=== PATIENT | female | born 1980 | race Caucasian/White ===

== ENCOUNTER 2016-04-08 20:05 | Emergency (ER) | payer MEDICAID ==
[2015-04-24 20:34] VITALS: BMI 31.2
[~2016-04-08 20:05] MED LIST: PERCOCET 10/3251 TA1 PO
== END 2016-04-08 22:53 | disposition home or self-care (01) ==
LOC: D.ER 20:05
DX: G43.909 Migraine, unspecified, not intractable, without status migrainosus (principal)

== ENCOUNTER 2016-04-22 21:29 | Emergency (ER) | payer MEDICAID ==
[2015-04-24 20:34] VITALS: BMI 31.2
== END 2016-04-22 23:28 | disposition home or self-care (01) ==
LOC: D.ER 21:29
DX: M62.838 Other muscle spasm (principal); M50.20 Other cervical disc displacement, unspecified cervical region

== ENCOUNTER 2016-05-05 18:05 | Emergency (ER) | payer MEDICAID ==
[2015-04-24 20:34] VITALS: BMI 31.2
== END 2016-05-05 23:41 | disposition left against medical advice (07) ==
LOC: D.ER 18:05
DX: R20.0 Anesthesia of skin (principal)

== ENCOUNTER 2016-05-06 15:57 | Emergency (ER) | payer MEDICAID ==
[2015-04-24 20:34] VITALS: BMI 31.2
== END 2016-05-06 18:35 | disposition home or self-care (01) ==
LOC: D.ER 15:57
DX: M54.12 Radiculopathy, cervical region (principal); F17.200 Nicotine dependence, unspecified, uncomplicated

== ENCOUNTER 2016-05-30 02:23 | Emergency (ER) | payer MEDICAID ==
[2015-04-24 20:34] VITALS: BMI 31.2
== END 2016-05-30 02:51 | disposition home or self-care (01) ==
LOC: D.ER 02:23
DX: G43.909 Migraine, unspecified, not intractable, without status migrainosus (principal); M50.20 Other cervical disc displacement, unspecified cervical region; F17.200 Nicotine dependence, unspecified, uncomplicated

== ENCOUNTER 2016-07-17 15:05 | Emergency (ER) | payer MEDICAID ==
[2015-04-24 20:34] VITALS: BMI 31.2
== END 2016-07-17 18:15 | disposition home or self-care (01) ==
LOC: D.ER 15:05
DX: L03.113 Cellulitis of right upper limb (principal); L02.413 Cutaneous abscess of right upper limb; M79.601 Pain in right arm

== ENCOUNTER 2016-07-21 16:51 | Emergency (ER) | payer MEDICAID ==
[2015-04-24 20:34] VITALS: BMI 31.2
== END 2016-07-21 21:34 | disposition home or self-care (01) ==
LOC: D.ER 16:51
DX: G43.909 Migraine, unspecified, not intractable, without status migrainosus (principal); R51 Headache; E86.0 Dehydration; M77.9 Enthesopathy, unspecified; N93.8 Other specified abnormal uterine and vaginal bleeding

== ENCOUNTER 2016-08-06 17:37 | Emergency (ER) | payer MEDICAID ==
[2015-04-24 20:34] VITALS: BMI 31.2
== END 2016-08-06 21:00 | disposition home or self-care (01) ==
LOC: D.ER 17:37
DX: M54.5 Low back pain (principal); F17.200 Nicotine dependence, unspecified, uncomplicated

== ENCOUNTER 2016-09-16 01:56 | Emergency (ER) | payer MEDICAID ==
[2015-04-24 20:34] VITALS: BMI 31.2
== END 2016-09-16 02:42 | disposition home or self-care (01) ==
LOC: D.ER 01:56
DX: K02.9 Dental caries, unspecified (principal); K08.89 Other specified disorders of teeth and supporting structures; K05.10 Chronic gingivitis, plaque induced

== ENCOUNTER 2016-09-20 01:23 | Emergency (ER) | payer MEDICAID ==
[2015-04-24 20:34] VITALS: BMI 31.2
== END 2016-09-20 02:00 | disposition home or self-care (01) ==
LOC: D.ER 01:23
DX: D69.0 Allergic purpura (principal); F17.200 Nicotine dependence, unspecified, uncomplicated

== ENCOUNTER 2016-10-27 01:40 | Emergency (ER) | payer MEDICAID ==
[2015-04-24 20:34] VITALS: BMI 31.2
== END 2016-10-27 02:42 | disposition home or self-care (01) ==
LOC: D.ER 01:40
DX: S61.250A Open bite of right index finger without damage to nail, initial encounter (principal); W54.0XXA Bitten by dog, initial encounter; Y93.89 Activity, other specified; Y92.9 Unspecified place or not applicable; Y99.9 Unspecified external cause status; F17.200 Nicotine dependence, unspecified, uncomplicated

== ENCOUNTER 2016-11-05 22:56 | Emergency (ER) | payer MEDICAID ==
[2015-04-24 20:34] VITALS: BMI 31.2
== END 2016-11-06 00:52 | disposition home or self-care (01) ==
LOC: D.ER 22:56
DX: R51 Headache (principal); I10 Essential (primary) hypertension; K21.9 Gastro-esophageal reflux disease without esophagitis; F17.200 Nicotine dependence, unspecified, uncomplicated

== ENCOUNTER 2016-11-14 23:48 | Emergency (ER) | payer MEDICAID ==
[2015-04-24 20:34] VITALS: BMI 31.2
== END 2016-11-15 00:26 | disposition home or self-care (01) ==
LOC: D.ER 23:48
DX: S41.111D Laceration without foreign body of right upper arm, subsequent encounter (principal); X58.XXXD Exposure to other specified factors, subsequent encounter; Y92.89 Other specified places as the place of occurrence of the external cause; Z48.02 Encounter for removal of sutures; Z85.828 Personal history of other malignant neoplasm of skin

== ENCOUNTER 2016-11-29 01:37 | Emergency (ER) | payer MEDICAID ==
[2015-04-24 20:34] VITALS: BMI 31.2
== END 2016-11-29 02:42 | disposition home or self-care (01) ==
LOC: D.ER 01:37
DX: T78.40XA Allergy, unspecified, initial encounter (principal); X58.XXXA Exposure to other specified factors, initial encounter; F17.200 Nicotine dependence, unspecified, uncomplicated

== ENCOUNTER 2016-12-21 01:47 | Emergency (ER) | payer MEDICAID ==
[2015-04-24 20:34] VITALS: BMI 31.2
== END 2016-12-21 03:40 | disposition home or self-care (01) ==
LOC: D.ER 01:47
DX: G43.909 Migraine, unspecified, not intractable, without status migrainosus (principal); I10 Essential (primary) hypertension

== ENCOUNTER 2017-01-03 01:17 | Emergency (ER) | payer MEDICAID ==
[2015-04-24 20:34] VITALS: BMI 31.2
== END 2017-01-03 02:12 | disposition home or self-care (01) ==
LOC: D.ER 01:17
DX: M50.30 Other cervical disc degeneration, unspecified cervical region (principal); M54.2 Cervicalgia; I10 Essential (primary) hypertension; F17.200 Nicotine dependence, unspecified, uncomplicated

== ENCOUNTER 2017-03-01 02:13 | Emergency (ER) | payer MEDICAID ==
[2015-04-24 20:34] VITALS: BMI 31.2
[2017-03-01 03:00] LABS: BASOPHILS 0.2 % (0-2); EOSINOPHILS 1.8 % (0-7); HEMATOCRIT 40.9 % (36.0-48.0); IMMATURE GRANULOCYTES 0.2 % (0-5); LYMPHOCYTES 30.4 % (15-50); MCH 31.8 pg (26.0-34.0); MCHC 34.2 g/dL (31.0-37.0); MEAN PLATELET VOLUME 10.2 fL (7.4-10.4); MONOCYTES 5.6 % (2-11); NEUTROPHILS 61.8 % (40-80); PLATELET COUNT 338 10x3/uL (130-400); RDW 13.6 % (11.5-14.5); WBC 12.9 10x3/uL (4.8-10.8)
[2017-03-01 03:15] LABS: ALBUMIN 3.4 g/dL (3.4-5.0); ALKALINE PHOSPHATASE 60 U/L (46-116); ALT (SGPT) 23 U/L (10-68); CALC OSMOLALITY 272 mosm/kg (275-300); CALCIUM 8.9 mg/dL (8.5-10.1); CARBON DIOXIDE 27.1 mmol/L (21.0-32.0); CHLORIDE - SERUM 104 mmol/L (98-107); CREATININE - SERUM 0.7 mg/dL (0.6-1.3); GLUCOSE 97 mg/dL (74-106); POTASSIUM - SERUM 3.8 mmol/L (3.5-5.1); PROTEIN - SERUM 6.9 g/dL (6.4-8.2); SODIUM 138 mmol/L (136-145); UREA NITROGEN 5 mg/dL (7-18); eGFR NON AFRICAN AMERICAN > 90 mL/min (90-120)
[2017-03-01 03:22] LABS: BILIRUBIN - TOTAL 0.09 mg/dL (0.2-1.3)
[2017-03-01 03:26] LABS: CREATINE KINASE 90 UL (21-215)
[2017-03-01 03:34] LABS: TROPONIN-I < 0.017 ng/mL (0.000-0.060)
== END 2017-03-01 03:54 | disposition home or self-care (01) ==
LOC: D.ER 02:13
PROVIDERS: Emergency Medicine
DX: R07.89 Other chest pain (principal); I10 Essential (primary) hypertension; Z85.828 Personal history of other malignant neoplasm of skin; F17.200 Nicotine dependence, unspecified, uncomplicated

== ENCOUNTER 2017-03-05 16:02 | Emergency (ER) | payer MEDICAID ==
[2015-04-24 20:34] VITALS: BMI 31.2
== END 2017-03-05 17:45 | disposition home or self-care (01) ==
LOC: D.ER 16:02
DX: J01.90 Acute sinusitis, unspecified (principal); F17.200 Nicotine dependence, unspecified, uncomplicated

== ENCOUNTER 2017-03-17 02:15 | Emergency (ER) | payer MEDICAID ==
[2015-04-24 20:34] VITALS: BMI 31.2
== END 2017-03-17 02:50 | disposition home or self-care (01) ==
LOC: D.ER 02:15
DX: T25.021A Burn of unspecified degree of right foot, initial encounter (principal); X11.8XXA Contact with other hot tap-water, initial encounter; Y93.89 Activity, other specified; Y92.019 Unspecified place in single-family (private) house as the place of occurrence of the external cause; F17.200 Nicotine dependence, unspecified, uncomplicated

== ENCOUNTER 2017-03-27 21:03 | Emergency (ER) | payer MEDICAID ==
[2015-04-24 20:34] VITALS: BMI 31.2
== END 2017-03-27 22:50 | disposition home or self-care (01) ==
LOC: D.ER 21:03
DX: J01.90 Acute sinusitis, unspecified (principal); J06.9 Acute upper respiratory infection, unspecified; I10 Essential (primary) hypertension; Z85.828 Personal history of other malignant neoplasm of skin; F17.200 Nicotine dependence, unspecified, uncomplicated

== ENCOUNTER 2017-04-02 17:51 | Emergency (ER) | payer MEDICAID ==
[2015-04-24 20:34] VITALS: BMI 31.2
== END 2017-04-02 21:01 | disposition home or self-care (01) ==
LOC: D.ER 17:51
DX: J20.9 Acute bronchitis, unspecified (principal)

== ENCOUNTER 2017-04-12 23:01 | Emergency (ER) | payer MEDICAID ==
[2015-04-24 20:34] VITALS: BMI 31.2
== END 2017-04-12 23:51 | disposition home or self-care (01) ==
LOC: D.ER 23:01
DX: G89.18 Other acute postprocedural pain (principal)

== ENCOUNTER 2017-05-15 01:16 | Emergency (ER) | payer MEDICAID ==
[2015-04-24 20:34] VITALS: BMI 31.2
== END 2017-05-15 02:10 | disposition home or self-care (01) ==
LOC: D.ER 01:16
DX: R10.9 Unspecified abdominal pain (principal); R11.10 Vomiting, unspecified; F17.200 Nicotine dependence, unspecified, uncomplicated

== ENCOUNTER → 2017-05-21 13:15 | Outpatient (CLI) | payer MEDICAID ==
[2015-04-24 20:34] VITALS: BMI 31.2
== END | disposition home or self-care (01) ==
LOC: D.CT 13:15
DX: R31.9 Hematuria, unspecified (principal); R10.30 Lower abdominal pain, unspecified

== ENCOUNTER 2017-05-22 00:14 | Emergency (ER) | payer MEDICAID ==
[2015-04-24 20:34] VITALS: BMI 31.2
[2017-05-22 01:17] LABS: BASOPHILS 0.1 % (0-2); EOSINOPHILS 0.7 % (0-7); HEMATOCRIT 43.9 % (36.0-48.0); HEMOGLOBIN 14.9 g/dL (12-16); IMMATURE GRANULOCYTES 0.2 % (0-5); MCH 31.5 pg (26.0-34.0); MCHC 33.9 g/dL (31.0-37.0); MCV 92.8 fL (80.0-100.0); MONOCYTES 4.2 % (2-11); NEUTROPHILS 75.8 % (40-80); PLATELET COUNT 340 10x3/uL (130-400); RBC 4.73 10x6/uL (4.00-5.40); RDW 13.5 % (11.5-14.5); WBC 13.9 10x3/uL (4.8-10.8)
[2017-05-22 01:29] LABS: ALBUMIN 3.6 g/dL (3.4-5.0); ALKALINE PHOSPHATASE 62 U/L (46-116); ALT (SGPT) 27 U/L (10-68); CALC OSMOLALITY 275 mosm/kg (275-300); CALCIUM 9.2 mg/dL (8.5-10.1); CARBON DIOXIDE 30.7 mmol/L (21.0-32.0); CHLORIDE - SERUM 103 mmol/L (98-107); CREATININE - SERUM 0.8 mg/dL (0.6-1.3); GLUCOSE 118 mg/dL (74-106); POTASSIUM - SERUM 3.5 mmol/L (3.5-5.1); PROTEIN - SERUM 7.5 g/dL (6.4-8.2); SODIUM 139 mmol/L (136-145); UREA NITROGEN 4 mg/dL (7-18); eGFR NON AFRICAN AMERICAN 86 mL/min (90-120)
[2017-05-22 01:31] LABS: APPEARANCE HAZY (CLEAR); BILIRUBIN NEGATIVE (NEGATIVE); COLOR YELLOW (YELLOW); EPITHELIAL CELLS 0-5 /hpf (0-5); GLUCOSE NEGATIVE (NEGATIVE); KETONE NEGATIVE (NEGATIVE); NITRITE NEGATIVE (NEGATIVE); PROTEIN 1+ mg/dL (NEGATIVE); UROBILINOGEN NORMAL (NORMAL); WHITE CELLS - URINE 0-5 /hpf (0-5)
== END 2017-05-22 02:00 | disposition home or self-care (01) ==
LOC: D.ER 00:14
PROVIDERS: Emergency Medicine
DX: K43.9 Ventral hernia without obstruction or gangrene (principal); F17.200 Nicotine dependence, unspecified, uncomplicated

== ENCOUNTER 2017-06-27 03:29 | Emergency (ER) | payer MEDICAID ==
[2015-04-24 20:34] VITALS: BMI 31.2
[2017-06-27 04:42] LABS: BASOPHILS 0.2 % (0-2); EOSINOPHILS 1.5 % (0-7); HEMATOCRIT 42.4 % (36.0-48.0); HEMOGLOBIN 14.4 g/dL (12-16); IMMATURE GRANULOCYTES 0.3 % (0-5); MCH 31.2 pg (26.0-34.0); MEAN PLATELET VOLUME 10.1 fL (7.4-10.4); MONOCYTES 6.7 % (2-11); NEUTROPHILS 63.3 % (40-80); PLATELET COUNT 343 10x3/uL (130-400); RBC 4.61 10x6/uL (4.00-5.40); RDW 13.3 % (11.5-14.5); WBC 15.4 10x3/uL (4.8-10.8)
[2017-06-27 04:53] LABS: CALC OSMOLALITY 274 mosm/kg (275-300); CALCIUM 8.7 mg/dL (8.5-10.1); CARBON DIOXIDE 24.7 mmol/L (21.0-32.0); CHLORIDE - SERUM 105 mmol/L (98-107); CREATININE - SERUM 0.8 mg/dL (0.6-1.3); GLUCOSE 80 mg/dL (74-106); POTASSIUM - SERUM 3.3 mmol/L (3.5-5.1); SODIUM 140 mmol/L (136-145); UREA NITROGEN 5 mg/dL (7-18); eGFR NON AFRICAN AMERICAN 86 mL/min (90-120)
[2017-06-27 05:50] LABS: APPEARANCE CLEAR (CLEAR); BILIRUBIN NEGATIVE (NEGATIVE); COLOR YELLOW (YELLOW); GLUCOSE NEGATIVE (NEGATIVE); KETONE NEGATIVE (NEGATIVE); NITRITE NEGATIVE (NEGATIVE); PROTEIN NEGATIVE (NEGATIVE); SPECIFIC GRAVITY 1.015 (1.005-1.020); UROBILINOGEN NORMAL (NORMAL)
[2017-07-26] MEDS ORDERED: PROPRANOLOL HCL20 MG PO (11:06)
[2017-07-26] MEDS ORDERED: ROBAXIN500 MG PO (11:07)
[2017-07-26] MEDS ORDERED: ELAVIL75 MG PO (11:08)
[2017-07-26] MEDS ORDERED: BUSPAR 15 MG TA15 MG PO (11:08)
[2017-07-26] MEDS ORDERED: IMITREX100 MG PO (11:09)
[2017-07-26] MEDS ORDERED: COMPAZINE10 MG PO (11:09)
[2017-07-26] MEDS ORDERED: VOLTAREN100 GM TOPICAL (11:10)
== END 2017-06-27 06:40 | disposition home or self-care (01) ==
LOC: D.ER 03:29
PROVIDERS: Emergency Medicine
DX: K42.9 Umbilical hernia without obstruction or gangrene (principal); F17.200 Nicotine dependence, unspecified, uncomplicated

== ENCOUNTER 2017-07-16 00:18 | Emergency (ER) | payer MEDICAID ==
[2015-04-24 20:34] VITALS: BMI 31.2
[2017-07-26] MEDS ORDERED: PROPRANOLOL HCL20 MG PO (11:06)
[2017-07-26] MEDS ORDERED: ROBAXIN500 MG PO (11:07)
[2017-07-26] MEDS ORDERED: BUSPAR 15 MG TA15 MG PO (11:08)
[2017-07-26] MEDS ORDERED: ELAVIL75 MG PO (11:08)
[2017-07-26] MEDS ORDERED: IMITREX100 MG PO (11:09)
[2017-07-26] MEDS ORDERED: COMPAZINE10 MG PO (11:09)
[2017-07-26] MEDS ORDERED: VOLTAREN100 GM TOPICAL (11:10)
== END 2017-07-16 01:15 | disposition home or self-care (01) ==
LOC: D.ER 00:18
DX: G43.909 Migraine, unspecified, not intractable, without status migrainosus (principal); R11.0 Nausea

== ENCOUNTER 2017-07-27 05:20 | Day surgery (SDC) | payer MEDICAID ==
[2017-07-26 11:58] LABS: BASOPHILS 0.1 % (0-2); EOSINOPHILS 1.8 % (0-7); HEMATOCRIT 44.4 % (36.0-48.0); HEMOGLOBIN 15.1 g/dL (12-16); IMMATURE GRANULOCYTES 0.3 % (0-5); LYMPHOCYTES 22.8 % (15-50); MCH 31.3 pg (26.0-34.0); MCV 92.1 fL (80.0-100.0); MEAN PLATELET VOLUME 10.3 fL (7.4-10.4); MONOCYTES 6.6 % (2-11); NEUTROPHILS 68.4 % (40-80); PLATELET COUNT 329 10x3/uL (130-400); RBC 4.82 10x6/uL (4.00-5.40); RDW 13.8 % (11.5-14.5); WBC 14.2 10x3/uL (4.8-10.8)
[~2017-07-27] VITALS: Ht 157.5 cm; Wt 85.3 kg
--- NOTE | ~2017-07-27 | HP ---
PATIENT: CEHN JAMES MEDICAL RECORD: [id number] ACCOUNT: [id number] LOCATION:[facility] : 82 ADMISSION DATE: 07/27/17 HISTORY AND PHYSICAL EXAMINATION HISTORY AND PHYSICAL ADDENDUM There is a typed history and physical on the chart. The patient has an incisional hernia. We will attempt to repair this laparoscopically. She has an incisional hernia at the umbilicus. She has undergone a prior laparoscopic procedure at the umbilicus. It was a tubal ligation. She has had some nausea as well as bloating and constipation. It has been enlarging. She first noticed it in March of 2017. PHYSICAL EXAMINATION: GENERAL: The patient does not appear acutely ill. She does not appear chronically ill. The entire physical examination was performed in the presence of a female nurse. VITAL SIGNS: Reviewed. EARS: External ears appear normal. EYES: Extraocular movements are intact. NECK: Trachea is midline. CHEST: No intercostal retractions. PULMONARY: Nonlabored. No stridor. ABDOMEN: Partially reducible incisional hernia at the umbilicus. PLAN: Laparoscopic repair, possible open, with mesh. TRANSINT:[id number] Voice Confirmation ID: [id number] DOCUMENT ID: [id number] WILDER LOPEZ MD at 1157 CC: [id number] DICTATION DATE: 08/03/17 1642 CAMP[facility] CARETAKER: 08/03/17 1813 [facility] 07/27/17 [place] [id number]
--- NOTE | ~2017-07-27 | OP ---
PATIENT NAME: CHEN JAMES MEDICAL RECORD: [id number] :82 LOCATION:[facility] ADMISSION DATE: SURGEON: WILDER LOPEZ MD DATE OF OPERATION: 07/27/2017 PREOPERATIVE DIAGNOSIS: Symptomatic incarcerated incisional hernia. POSTOPERATIVE DIAGNOSIS: Symptomatic incarcerated incisional hernia. PROCEDURE: Laparoscopic incarcerated incisional hernia repair with Ventralight ST mesh. A circular 11.4 cm diameter mesh was utilized. SURGEON: Wilder Lopez MD SECURITIES COUNSELOR: None. BLOOD LOSS: Minimal. ANESTHESIA: General. COMPLICATIONS: None. The risks, possible complications, and alternatives to procedure were explained to the patient. She elects to proceed. OPERATIVE COURSE: The patient was conveyed to the operating room electively on 07/27/2017. General anesthesia was induced by the anesthesia staff. Dr. Manuel performed a fulguration of condylomata. The patient was then positioned supine. The abdomen was sterilely prepped and draped. An incision was accomplished in the left upper quadrant. Through this incision, a Veress needle was inserted. CO2 insufflation was begun. Once a sufficient pneumoperitoneum had been achieved, a 12-mm trocar was inserted. Under direct internal vision utilizing a television camera, a 5-mm trocar was inserted through an incision in the left lower quadrant. Two 5-mm trocars were inserted through incisions in the right side of the abdomen. During insertion of the Veress needle and all trocars, there appeared to have been no injury to the bowels, any intraperitoneal or retroperitoneal structures. Abdominal survey was undertaken. Incarcerated omentum was excised from the hernia defect. A prevesicular flap was created with the Harmonic scalpel. I took down the falciform ligament with the Harmonic scalpel as well as the anterior portion of the triangular ligament of the liver. I cleaned some preperitoneal fat from around the hernia defect. I then brought a sterile Ventralight ST mesh with echo positioning system onto the sterile field and I moistened it. I then advanced it down through the 12-mm trocar. A skin incision was accomplished within the umbilicus. A laparoscopic suture passer was advanced down through the skin ryan and then through the hernia defect. I grasped the tail of the echo positioning system and brought it up through the anterior abdominal wall. I then cut the tubing. I attached to the inflation device. I then inflated the mesh. Once I was satisfied with the positioning, circumferential tacking with 2 separate tacking devices was performed. The herniorrhaphy was accomplished with the second tacking device, which was a SorbaFix Tacker. There was no bleeding. I desufflated to a pressure of 8. Still no bleeding. I then cut the tail to the positioning OPERATIVE REPORT [id number] JACOBCHEN Mega system. The inflation device and the positioning system were then removed. They were removed in their entireties. I irrigated and aspirated. There was no bleeding. The Lico-Tevin suture closure device and 0 Vicryl suture were used to close the left upper quadrant muscle. All the trocars were removed and the abdomen desufflated. Skin incisions were closed with interrupted intracuticular 4-0 Vicryls. Benzoin and Steri-Strips were applied. The patient was then extubated and conveyed to post-anesthesia care unit where she was in stable condition. She will be dismissed home on hydrocodone for pain. I will see her in the office in 2-3 weeks. TRANSINT:[id number] Voice Confirmation ID: [id number] DOCUMENT ID: [id number] WILDER LOPEZ MD at 1157 CC: ROBINSON MANUEL MD and JOE MAYER [id number] DICTATION DATE: 07/27/17 1006 RADIO RIGGER: 07/27/17 1317 [facility] 07/27/17 [facility] [address] [place] [id number]
[~2017-07-27 05:20] MED LIST changes: +BUSPAR 15 MG TA15 MG PO; +COMPAZINE10 MG PO; +ELAVIL75 MG PO; +IMITREX100 MG PO; +PROPRANOLOL HCL20 MG PO; +ROBAXIN500 MG PO; +VOLTAREN100 GM TOPICAL
[2017-07-27] MEDS ORDERED: PROAIR HFA8.5 GM INH (06:24)
[2017-07-27 06:31] VITALS: BP 120/75; Ht 157.5 cm; Wt 85.3 kg
== END 2017-07-27 12:00 | disposition home or self-care (01) ==
LOC: D.OPS 05:20 → D.PAN 08:00 → D.OPS 08:00 → D.PAN 10:00 → D.OPS 12:00
PROVIDERS: Obstetrics & Gynecology
DX: K43.0 Incisional hernia with obstruction, without gangrene (principal); Z01.812 Encounter for preprocedural laboratory examination

== ENCOUNTER 2017-07-29 02:42 | Emergency (ER) | payer MEDICAID ==
[2017-07-27 06:31] VITALS: BMI 34.4
[~2017-07-29 02:42] MED LIST changes: +PROAIR HFA8.5 GM INH
== END 2017-07-29 03:32 | disposition home or self-care (01) ==
LOC: D.ER 02:42
DX: R10.33 Periumbilical pain (principal); F17.200 Nicotine dependence, unspecified, uncomplicated

== ENCOUNTER 2017-08-05 01:49 | Emergency (ER) | payer MEDICAID ==
[2017-07-27 06:31] VITALS: BMI 34.4
== END 2017-08-05 02:38 | disposition home or self-care (01) ==
LOC: D.ER 01:49
DX: G89.18 Other acute postprocedural pain (principal); F17.200 Nicotine dependence, unspecified, uncomplicated

== ENCOUNTER 2017-08-14 02:15 | Emergency (ER) | payer MEDICAID ==
[2017-07-27 06:31] VITALS: BMI 34.4
== END 2017-08-14 05:15 | disposition home or self-care (01) ==
LOC: D.ER 02:15
DX: K04.7 Periapical abscess without sinus (principal); K02.9 Dental caries, unspecified

== ENCOUNTER 2017-08-22 21:34 | Emergency (ER) | payer MEDICAID ==
[2017-07-27 06:31] VITALS: BMI 34.4
== END 2017-08-22 22:32 | disposition home or self-care (01) ==
LOC: D.ER 21:34
DX: G43.909 Migraine, unspecified, not intractable, without status migrainosus (principal); F17.200 Nicotine dependence, unspecified, uncomplicated

== ENCOUNTER 2017-09-12 01:14 | Emergency (ER) | payer MEDICAID ==
[~2017-09-12] VITALS: Ht 157.5 cm; Wt 81.8 kg
[2017-09-12 01:18] VITALS: Ht 157.5 cm; Wt 81.8 kg
[2017-09-12] MEDS ORDERED: BACTRIM DS TABL1 TAB PO (01:37)
[2017-09-12] MEDS ORDERED: HYDROCODON-ACE1 EAC7 PO (01:37)
[2017-09-12 01:43] VITALS: BP 132/88
== END 2017-09-12 01:44 | disposition home or self-care (01) ==
LOC: D.ER 01:14
DX: L02.211 Cutaneous abscess of abdominal wall (principal); I10 Essential (primary) hypertension; F17.200 Nicotine dependence, unspecified, uncomplicated

== ENCOUNTER 2017-10-03 00:05 | Emergency (ER) | payer MEDICAID ==
[~2017-10-03] VITALS: Ht 157.5 cm; Wt 84.1 kg
[~2017-10-03 00:05] MED LIST changes: +BACTRIM DS TABL1 TAB PO; +HYDROCODON-ACE1 EAC7 PO
[2017-10-03 00:39] VITALS: Ht 157.5 cm; Wt 84.1 kg
[2017-10-03] MEDS ORDERED: CORTISPORIN OTI10 M1 EACH EAR (02:03)
[2017-10-03] MEDS ORDERED: FLUTICASONE PRO16 GM NASAL (02:04)
[2017-10-03 02:50] VITALS: BP 111/78
== END 2017-10-03 02:51 | disposition home or self-care (01) ==
LOC: D.ER 00:05
DX: S01.312A Laceration without foreign body of left ear, initial encounter (principal); X58.XXXA Exposure to other specified factors, initial encounter; Y93.89 Activity, other specified; Y92.019 Unspecified place in single-family (private) house as the place of occurrence of the external cause; I10 Essential (primary) hypertension; F17.200 Nicotine dependence, unspecified, uncomplicated

== ENCOUNTER 2017-10-12 19:09 | Emergency (ER) | payer MEDICAID ==
[~2017-10-12] VITALS: Ht 157.5 cm; Wt 84.1 kg
[~2017-10-12 19:09] MED LIST changes: +CORTISPORIN OTI10 M1 EACH EAR; +FLUTICASONE PRO16 GM NASAL
[2017-10-12 19:44] VITALS: Ht 157.5 cm; Wt 84.1 kg
[2017-10-12 22:14] VITALS: BP 121/83
== END 2017-10-12 22:15 | disposition home or self-care (01) ==
LOC: D.ER 19:09
DX: G43.909 Migraine, unspecified, not intractable, without status migrainosus (principal); R11.0 Nausea; I10 Essential (primary) hypertension; F17.200 Nicotine dependence, unspecified, uncomplicated

== ENCOUNTER 2017-10-15 16:46 | Emergency (ER) | payer MEDICAID ==
[~2017-10-15] VITALS: Ht 157.5 cm; Wt 84.1 kg
[2017-10-15 17:03] VITALS: Ht 157.5 cm; Wt 84.1 kg
[2017-10-15] MEDS ORDERED: ARTHROTEC 501 TAB.EC PO (19:26)
[2017-10-15 20:01] VITALS: BP 118/78
== END 2017-10-15 20:00 | disposition home or self-care (01) ==
LOC: D.ER 16:46
DX: G56.01 Carpal tunnel syndrome, right upper limb (principal); I10 Essential (primary) hypertension; F17.200 Nicotine dependence, unspecified, uncomplicated

== ENCOUNTER 2017-11-17 00:03 | Emergency (ER) | payer MEDICAID ==
[~2017-11-17] VITALS: Ht 157.5 cm; Wt 80.9 kg
[~2017-11-17 00:03] MED LIST changes: +ARTHROTEC 501 TAB.EC PO
[2017-11-17 00:16] VITALS: Ht 157.5 cm; Wt 80.9 kg
[2017-11-17 01:50] VITALS: BP 147/98
== END 2017-11-17 01:49 | disposition home or self-care (01) ==
LOC: D.ER 00:03
DX: H92.01 Otalgia, right ear (principal); H61.21 Impacted cerumen, right ear; J01.90 Acute sinusitis, unspecified

== ENCOUNTER 2018-01-29 18:18 | Emergency (ER) | payer MEDICAID ==
[~2018-01-29] VITALS: Ht 157.5 cm; Wt 81.8 kg
[2018-01-29 18:23] VITALS: Ht 157.5 cm; Wt 81.8 kg
[2018-01-29] MEDS ORDERED: ZPAK PO (20:07)
[2018-01-29 20:43] VITALS: BP 117/79
[2018-02-04 20:08] LABS: AEROBE ID Final report (())
== END 2018-01-29 20:42 | disposition home or self-care (01) ==
LOC: D.ER 18:18
PROVIDERS: Emergency Medicine
DX: J06.9 Acute upper respiratory infection, unspecified (principal); G40.909 Epilepsy, unspecified, not intractable, without status epilepticus; I10 Essential (primary) hypertension; F17.200 Nicotine dependence, unspecified, uncomplicated

== ENCOUNTER 2018-02-04 22:47 | Emergency (ER) | payer MEDICAID ==
[~2018-02-04] VITALS: Ht 157.5 cm; Wt 81.8 kg
[~2018-02-04 22:47] MED LIST changes: +ZPAK PO
[2018-02-04 22:50] VITALS: Ht 157.5 cm; Wt 81.8 kg
[2018-02-04] MEDS ORDERED: ULTRAM50 MG PO (23:28)
[2018-02-04 23:45] VITALS: BP 135/87
== END 2018-02-04 23:45 | disposition home or self-care (01) ==
LOC: D.ER 22:47
DX: M77.41 Metatarsalgia, right foot (principal); Q66.7 Congenital pes cavus; I10 Essential (primary) hypertension; G40.909 Epilepsy, unspecified, not intractable, without status epilepticus

== ENCOUNTER 2018-03-04 00:32 | Emergency (ER) | payer MEDICAID ==
[~2018-03-04] VITALS: Ht 157.5 cm; Wt 84.8 kg
[~2018-03-04 00:32] MED LIST changes: +ULTRAM50 MG PO
[2018-03-04 00:35] VITALS: Ht 157.5 cm; Wt 84.8 kg
[2018-03-04 01:32] VITALS: BP 123/80
== END 2018-03-04 01:36 | disposition home or self-care (01) ==
LOC: D.ER 00:32
DX: J02.9 Acute pharyngitis, unspecified (principal); K13.79 Other lesions of oral mucosa; G40.909 Epilepsy, unspecified, not intractable, without status epilepticus; I10 Essential (primary) hypertension; F17.200 Nicotine dependence, unspecified, uncomplicated

== ENCOUNTER → 2018-03-14 08:05 | Outpatient (CLI) | payer MEDICAID ==
[2018-03-04 00:35] VITALS: BMI 33.0
== END | disposition home or self-care (01) ==
LOC: D.RAD 08:00
DX: R13.12 Dysphagia, oropharyngeal phase (principal)

== ENCOUNTER 2018-05-13 17:17 | Emergency (ER) | payer MEDICAID ==
[~2018-05-13] VITALS: Ht 157.5 cm; Wt 82.7 kg
[2018-05-13 17:20] VITALS: Ht 157.5 cm; Wt 82.7 kg
[2018-05-13 17:41] LABS: BASOPHILS 0.2 % (0-2); EOSINOPHILS 0.4 % (0-7); HEMATOCRIT 44.1 % (36.0-48.0); HEMOGLOBIN 15.2 g/dL (12-16); IMMATURE GRANULOCYTES 0.2 % (0-5); LYMPHOCYTES 22.5 % (15-50); MCHC 34.5 g/dL (31.0-37.0); MCV 92.8 fL (80.0-100.0); MEAN PLATELET VOLUME 10.5 fL (7.4-10.4); NEUTROPHILS 69.7 % (40-80); PLATELET COUNT 318 10x3/uL (130-400); RBC 4.75 10x6/uL (4.00-5.40); RDW 13.5 % (11.5-14.5); WBC 16.1 10x3/uL (4.8-10.8)
[2018-05-13 17:44] LABS: APPEARANCE CLEAR (CLEAR); BILIRUBIN NEGATIVE (NEGATIVE); COLOR YELLOW (YELLOW); GLUCOSE NEGATIVE (NEGATIVE); KETONE NEGATIVE (NEGATIVE); NITRITE NEGATIVE (NEGATIVE); PROTEIN NEGATIVE (NEGATIVE); UROBILINOGEN NORMAL (NORMAL)
[2018-05-13 18:01] LABS: ALBUMIN 3.7 g/dL (3.4-5.0); ALKALINE PHOSPHATASE 64 U/L (46-116); ALT (SGPT) 22 U/L (10-68); BILIRUBIN - TOTAL 0.28 mg/dL (0.2-1.3); CALC OSMOLALITY 279 mosm/kg (275-300); CALCIUM 8.8 mg/dL (8.5-10.1); CARBON DIOXIDE 25.5 mmol/L (21.0-32.0); CHLORIDE - SERUM 104 mmol/L (98-107); CREATININE - SERUM 0.9 mg/dL (0.6-1.3); GLUCOSE 94 mg/dL (74-106); POTASSIUM - SERUM 4.1 mmol/L (3.5-5.1); PROTEIN - SERUM 7.9 g/dL (6.4-8.2); SODIUM 141 mmol/L (136-145); UREA NITROGEN 11 mg/dL (7-18); eGFR NON AFRICAN AMERICAN 75 mL/min (90-120)
[2018-05-13 19:01] LABS: HCG URINE NEGATIVE (NEGATIVE)
[2018-05-13] MEDS ORDERED: FLAGYL500 MG PO (21:23)
[2018-05-13] MEDS ORDERED: VIBRAMYCIN 100100 MG PO (21:23)
[2018-05-13 22:26] VITALS: BP 130/82
[2018-05-18 03:09] LABS: CHLAMYDIA TRACHOMATIS, NAA Negative (Negative)
== END 2018-05-13 22:05 | disposition home or self-care (01) ==
LOC: D.ER 17:17
PROVIDERS: Emergency Medicine; Family Medicine
DX: R10.2 Pelvic and perineal pain (principal); N83.202 Unspecified ovarian cyst, left side; G43.909 Migraine, unspecified, not intractable, without status migrainosus; N73.9 Female pelvic inflammatory disease, unspecified; I10 Essential (primary) hypertension; F17.200 Nicotine dependence, unspecified, uncomplicated

== ENCOUNTER 2018-06-02 14:58 | Emergency (ER) | payer MEDICAID ==
[~2018-06-02] VITALS: Ht 157.5 cm; Wt 85.5 kg
[~2018-06-02 14:58] MED LIST changes: +FLAGYL500 MG PO; +VIBRAMYCIN 100100 MG PO
[2018-06-02 15:05] VITALS: BP 117/70; Ht 157.5 cm; Wt 85.5 kg
== END 2018-06-02 19:06 | disposition left against medical advice (07) ==
LOC: D.ER 14:58
DX: R09.89 Other specified symptoms and signs involving the circulatory and respiratory systems (principal); R51 Headache

== ENCOUNTER 2018-07-23 01:07 | Emergency (ER) | payer MEDICAID ==
[2018-07-23 01:21] VITALS: BMI 34.4
[2018-07-23] MEDS ORDERED: GABAPENTIN100 MG PO (01:22)
[2018-07-23] MEDS ORDERED: HYDROCODON-ACE1 EAC7 PO (04:13)
[2018-07-23] MEDS ORDERED: PENICILLIN V P500 MG PO (04:13)
[2018-07-23 05:06] VITALS: BP 138/79
== END 2018-07-23 05:06 | disposition home or self-care (01) ==
LOC: D.ER 01:07
DX: H66.91 Otitis media, unspecified, right ear (principal); S60.221A Contusion of right hand, initial encounter; X58.XXXA Exposure to other specified factors, initial encounter; Y93.9 Activity, unspecified; Y92.89 Other specified places as the place of occurrence of the external cause; K04.7 Periapical abscess without sinus; H92.01 Otalgia, right ear; K08.89 Other specified disorders of teeth and supporting structures

== ENCOUNTER 2018-09-16 18:33 | Emergency (ER) | payer MEDICAID ==
[~2018-09-16] VITALS: Ht 157.5 cm; Wt 76.4 kg
[~2018-09-16 18:33] MED LIST changes: +GABAPENTIN100 MG PO; +PENICILLIN V P500 MG PO
[2018-09-16 19:06] VITALS: Ht 157.5 cm; Wt 76.4 kg
[2018-09-16 22:16] VITALS: BP 112/68
== END 2018-09-16 22:16 | disposition home or self-care (01) ==
LOC: D.ER 18:33
DX: G43.909 Migraine, unspecified, not intractable, without status migrainosus (principal)

== ENCOUNTER 2018-09-30 19:42 | Emergency (ER) | payer MEDICAID ==
[~2018-09-30] VITALS: Ht 157.5 cm; Wt 85.0 kg
[2018-09-30 19:49] VITALS: Ht 157.5 cm; Wt 85.0 kg
[2018-09-30] MEDS ORDERED: MEDROL DOSE PACK4 MG PO (21:08)
[2018-09-30 21:36] VITALS: BP 120/78
== END 2018-09-30 21:37 | disposition home or self-care (01) ==
LOC: D.ER 19:42
DX: R51 Headache (principal)

== ENCOUNTER 2019-03-29 18:32 | Emergency (ER) | payer BC ==
[~2019-03-29 18:32] MED LIST changes: +MEDROL DOSE PACK4 MG PO
[2019-03-29 18:48] VITALS: Ht 157.5 cm
[2019-03-29] MEDS ORDERED: PERCOCET 10-321 EAC1 PO (18:50)
[2019-03-29 20:25] VITALS: BP 104/51
== END 2019-03-29 20:25 | disposition home or self-care (01) ==
LOC: D.ER 18:32
DX: G43.909 Migraine, unspecified, not intractable, without status migrainosus (principal); R11.0 Nausea; I10 Essential (primary) hypertension; Z72.0 Tobacco use; G56.00 Carpal tunnel syndrome, unspecified upper limb

== ENCOUNTER → 2019-04-05 07:35 | Outpatient (CLI) | payer MEDICAID ==
[~2019-04-05 07:35] MED LIST changes: +PERCOCET 10-321 EAC1 PO
== END | disposition home or self-care (01) ==
LOC: D.MRI 07:35
PROVIDERS: ATTEND Family Medicine Adult Medicine
DX: H47.099 Other disorders of optic nerve, not elsewhere classified, unspecified eye (principal)

== ENCOUNTER 2019-04-06 17:38 | Emergency (ER) | payer MEDICAID ==
[~2019-04-06] VITALS: Ht 157.5 cm; Wt 83.6 kg
[2019-04-06 17:53] VITALS: Ht 157.5 cm; Wt 83.6 kg
[2019-04-06 19:48] VITALS: BP 102/65
== END 2019-04-06 19:48 | disposition home or self-care (01) ==
LOC: D.ER 17:38
DX: R51 Headache (principal); I10 Essential (primary) hypertension; Z72.0 Tobacco use

== ENCOUNTER 2019-06-17 19:52 | Emergency (ER) | payer MEDICAID ==
[~2019-06-17] VITALS: Ht 157.5 cm; Wt 77.3 kg
[2019-06-17 19:57] VITALS: Ht 157.5 cm; Wt 77.3 kg
[2019-06-17] MEDS ORDERED: ACETAZOLAMIDE250 MG PO (19:59)
[2019-06-17] MEDS ORDERED: ARTHROTEC 501 TAB.EC PO (20:00)
[2019-06-17] MEDS ORDERED: METHOCARBAMOL500 MG PO (20:00)
[2019-06-17] MEDS ORDERED: ELAVIL25 MG PO (20:01)
[2019-06-17] MEDS ORDERED: SYMBICORT 80-10.2 GM INH (20:01)
[2019-06-17 20:26] LABS: BASOPHILS 0 % (0-2); BILIRUBIN NEGATIVE (NEGATIVE); EOSINOPHILS 0 % (0-7); GLUCOSE NEGATIVE (NEGATIVE); HEMATOCRIT 44.8 % (36.0-48.0); HEMOGLOBIN 14.8 g/dL (12-16); IMMATURE GRANULOCYTES 0.2 % (0-5); KETONE NEGATIVE (NEGATIVE); LYMPHOCYTES 9.6 % (15-50); MCH 31.6 pg (26.0-34.0); MCV 95.7 fL (80.0-100.0); MONOCYTES 1.5 % (2-11); NEUTROPHILS 88.7 % (40-80); NITRITE NEGATIVE (NEGATIVE); PLATELET COUNT 333 10x3/uL (130-400); RBC 4.68 10x6/uL (4.00-5.40); RDW 14.1 % (11.5-14.5); UROBILINOGEN NORMAL (NORMAL); WBC 13.3 10x3/uL (4.8-10.8)
[2019-06-17 20:44] LABS: CALC OSMOLALITY 279 mosm/kg (275-300); CALCIUM 9.4 mg/dL (8.5-10.1); CARBON DIOXIDE 21.2 mmol/L (21.0-32.0); CHLORIDE - SERUM 106 mmol/L (98-107); CREATININE - SERUM 0.7 mg/dL (0.6-1.3); GLUCOSE 110 mg/dL (74-106); POTASSIUM - SERUM 4.3 mmol/L (3.5-5.1); SODIUM 140 mmol/L (136-145); UREA NITROGEN 13 mg/dL (7-18); eGFR NON AFRICAN AMERICAN > 90 mL/min (90-120)
[2019-06-17 20:59] LABS: ALBUMIN 3.8 g/dL (3.4-5.0); ALKALINE PHOSPHATASE 54 U/L (30-120); ALT (SGPT) 28 U/L (10-68); BILIRUBIN - TOTAL 0.11 mg/dL (0.2-1.3); CKMB 0.8 U/L (0.0-3.6); CREATINE KINASE 69 UL (21-215); PRO BNP 226 pg/mL (0-125); PROTEIN - SERUM 7.1 g/dL (6.4-8.2); TROPONIN-I < 0.017 ng/mL (0.000-0.060)
[2019-06-17 21:57] VITALS: BP 97/65
== END 2019-06-17 21:58 | disposition home or self-care (01) ==
LOC: D.ER 19:52
PROVIDERS: Emergency Medicine
DX: R07.89 Other chest pain (principal); I10 Essential (primary) hypertension; J45.909 Unspecified asthma, uncomplicated

== ENCOUNTER 2019-08-13 12:56 | Emergency (ER) | payer MEDICAID ==
[~2019-08-13 12:56] MED LIST changes: +ACETAZOLAMIDE250 MG PO; +ELAVIL25 MG PO; +METHOCARBAMOL500 MG PO; +SYMBICORT 80-10.2 GM INH
[2019-08-13 13:01] VITALS: Ht 157.5 cm
[2019-08-13] MEDS ORDERED: STERAPRED DS 1010 MG PO (14:54)
[2019-08-13] MEDS ORDERED: ZPAK PO (14:54)
[2019-08-13 15:15] VITALS: BP 112/68
== END 2019-08-13 15:16 | disposition home or self-care (01) ==
LOC: D.ER 12:56
DX: J02.9 Acute pharyngitis, unspecified (principal); J06.9 Acute upper respiratory infection, unspecified; I10 Essential (primary) hypertension; J45.909 Unspecified asthma, uncomplicated

== ENCOUNTER 2019-11-01 06:29 | Emergency (ER) | payer MEDICAID ==
[~2019-11-01] VITALS: Ht 157.5 cm; Wt 77.3 kg
[~2019-11-01 06:29] MED LIST changes: +STERAPRED DS 1010 MG PO
[2019-11-01 06:36] VITALS: Ht 157.5 cm; Wt 77.3 kg
[2019-11-01 07:26] LABS: CALC OSMOLALITY 277 mosm/kg (275-300); CALCIUM 9.6 mg/dL (8.5-10.1); CARBON DIOXIDE 20.7 mmol/L (21.0-32.0); CHLORIDE - SERUM 108 mmol/L (98-107); CREATININE - SERUM 0.8 mg/dL (0.6-1.3); GLUCOSE 73 mg/dL (74-106); POTASSIUM - SERUM 3.4 mmol/L (3.5-5.1); SODIUM 141 mmol/L (136-145); UREA NITROGEN 6 mg/dL (7-18); eGFR NON AFRICAN AMERICAN 85 mL/min (90-120)
[2019-11-01 07:28] LABS: BASOPHILS 0.2 % (0-2); EOSINOPHILS 3.2 % (0-7); HEMOGLOBIN 15.2 g/dL (12-16); IMMATURE GRANULOCYTES 0.2 % (0-5); LYMPHOCYTES 32.2 % (15-50); MCHC 33.8 g/dL (31.0-37.0); MCV 91.8 fL (80.0-100.0); MONOCYTES 6.2 % (2-11); PLATELET COUNT 329 10x3/uL (130-400); RDW 13.2 % (11.5-14.5); WBC 9.2 10x3/uL (4.8-10.8)
[2019-11-01 07:35] LABS: ALBUMIN 3.8 g/dL (3.4-5.0); ALKALINE PHOSPHATASE 53 U/L (30-120); ALT (SGPT) 17 U/L (10-68); AMYLASE - SERUM 59 U/L (25-115); BILIRUBIN - TOTAL 0.42 mg/dL (0.2-1.3); LIPASE 507 U/L (73-393); PROTEIN - SERUM 7.5 g/dL (6.4-8.2)
[2019-11-01 07:38] LABS: TROPONIN-I < 0.017 ng/mL (0.000-0.060)
[2019-11-01 08:12] LABS: HCG SERUM NEGATIVE (NEGATIVE)
[2019-11-01 08:49] LABS: BILIRUBIN NEGATIVE (NEGATIVE); GLUCOSE NEGATIVE (NEGATIVE); KETONE NEGATIVE (NEGATIVE); NITRITE NEGATIVE (NEGATIVE); UROBILINOGEN NORMAL (NORMAL)
[2019-11-01] MEDS ORDERED: BUTALB-APAP-CA1 EACH PO (08:57)
[2019-11-01] MEDS ORDERED: ACETAMINOPHEN500 M1 PO (08:58)
[2019-11-01] MEDS ORDERED: IBUPROFEN800 MG PO (08:58)
[2019-11-01] MEDS ORDERED: ZOFRAN ODT4 MG/UDTAB PO (08:59)
[2019-11-01] MEDS ORDERED: CYCLOBENZAPRINE10 MG PO (08:59)
[2019-11-01 10:11] VITALS: BP 118/64
== END 2019-11-01 10:14 | disposition home or self-care (01) ==
LOC: D.ER 06:29
PROVIDERS: Family Medicine
DX: R10.30 Lower abdominal pain, unspecified (principal); M54.9 Dorsalgia, unspecified; G43.909 Migraine, unspecified, not intractable, without status migrainosus; M54.5 Low back pain; G89.29 Other chronic pain; J45.909 Unspecified asthma, uncomplicated; Z72.0 Tobacco use